=== PATIENT | female | born 2000 | race Caucasian/White ===

== ENCOUNTER 2020-02-11 22:15 | Day surgery (SDC) | payer OTHER ==
[2020-02-11 22:43] VITALS: BP 129/82; TEMP 98.7; BMI 31.5
[2020-02-11] MEDS ORDERED: hydrALAZINE 20 MG/ML VIAL SLOW IVP PRN (23:02)
--- NOTE | 2020-02-18 20:43 | SS ---
DATE OF ADMISSION: 02/11/2020 DATE OF DISCHARGE: 02/11/2020 REGULAR PHYSICIAN: Ana Cristina Matamoros MD EVALUATING PHYSICIAN: Nayan Macdonald MD CHIEF COMPLAINT: Contractions at home. HISTORY OF PRESENT ILLNESS: Ms. Dumont is a 19-year-old white G1, P0, with an estimated date of confinement of 02/17/2020, who presents complaining of uterine contractions at home approximately every 6 to 10 minutes. She denies associated ruptured membranes or vaginal bleeding. Her care has been with Dr. Matamoros and has been without reported complications. PAST MEDICAL HISTORY: None. PAST SURGICAL HISTORY: [place] teeth extraction. CURRENT MEDICATIONS: 1. vitamins. 2. Macrobid. ALLERGIES: NO KNOWN ALLERGIES. SOCIAL HISTORY: She denies tobacco, alcohol, or drug use. FAMILY HISTORY: Unremarkable. REVIEW OF SYSTEMS: She denies nausea, vomiting, fever, chills, ruptured membranes, vaginal bleeding, or decreased movement. PHYSICAL EXAMINATION: VITAL SIGNS: In triage, her vital signs are stable, and she is afebrile. GENERAL: She is pleasant and in no acute distress. ABDOMEN: Soft, nontender, and gravid. PELVIC: Examination by a labor nurse shows the cervix to be 1 cm dilated and 80% effaced with the vertex presenting. DIAGNOSTIC DATA: heart rate tracing is stable with spontaneous accelerations. No decelerations are seen. Irregular uterine contractions are noted. ASSESSMENT: 1. A 39-1/7-week intrauterine . 2. Latent phase labor, no evidence of active labor at this time. PLAN: The patient will be dismissed to home with labor precautions. She understood these precautions and has a followup appointment with [facility] on . Job ID: [id number] [facility]
== END 2020-02-11 23:15 | disposition home or self-care (01) ==
LOC: L&D/OP 22:15
PROVIDERS: ATTEND Student in an Organized Health Care Education/Training Program
DX: O47.9 False labor, unspecified (principal); O99.891 Other specified diseases and conditions complicating pregnancy; N89.8 Other specified noninflammatory disorders of vagina; Z3A.00 Weeks of gestation of pregnancy not specified
CPT/HCPCS: 99282

== ENCOUNTER 2020-02-12 01:16 | Inpatient (IN) | payer OTHER ==
[2020-02-12 02:01] VITALS: BMI 31.5
[2020-02-12 02:10] LABS: Amnisure Internal Control QC ACCEPTABLE (ACCEPTABLE); Amnisure Test RUPTURE DETECTED (No Rupture)
[2020-02-12] MEDS ORDERED: Lidocaine 1% (PF) 30 ML VIAL SC PRN (02:24)
[2020-02-12] MEDS ORDERED: Ondansetron PF 4 MG/2 ML Vial IVP PRN ×2 (02:24→22:52)
[2020-02-12] MEDS ORDERED: NS / Oxytocin 40 units/1000ml 1,000 ML IV PRN (02:24)
[2020-02-12] MEDS ORDERED: Ibuprofen 800 MG TAB PO PRN (02:24)
[2020-02-12] MEDS ORDERED: Butorphanol Tartrate 1 MG/ML VIAL SLOW IVP PRN (02:24)
[2020-02-12] MEDS ORDERED: Promethazine HCl 25 MG/ML VIAL IM PRN (02:24)
[2020-02-12] MEDS ORDERED: hydrALAZINE 20 MG/ML VIAL SLOW IVP PRN ×2 (02:24→22:52)
[2020-02-12] MEDS ORDERED: HYDROcodone/Acetaminophen 5/325 mg Tablet PO PRN ×4 (02:24→22:52)
[2020-02-12] MEDS ORDERED: Penicillin G Potassium 5 MILL.UNITS in Sodium Chloride 0.9% 100 ML IVPB SCH (02:30)
[2020-02-12] MEDS ORDERED: NS w/ Oxytocin 10 units 500 ML IV SCH (02:30)
[2020-02-12] MEDS ORDERED: Lactated Ringer's 1,000 ML IV SCH (02:30)
--- NOTE | 2020-02-12 02:49 | PDOC.LDHP ---
Labor and Delivery H&P Chief complaint: loss of fluid HPI: 19 yo WF presernts c/o SROM at 0030. Was here earlier for labor check and sent home. Current gestational age (weeks): 39 Due date: 02/17/20 Dating criteria: last menstrual period Grav: 1 Para: 0 OB History Details: PNC with Dr. Matamoros Current complications: none Abnormal US findings: No Past Medical History: none Current medications: pre-bryan vitamins, other (Macrobid) Previous surgical history: other ([place] teeth) Allergies/Adverse Reactions: Allergies Allergy/AdvReac Type Severity Reaction Status Date / Time No Known Allergies Allergy Verified 02/12/20 01:58 Social history: none - Physical Exam Vital signs reviewed and normal: yes General: resting Heart: RRR Lungs: CTAB Abdomen: gravid Extremeties: trace edema FHT: category 1 [place] contractions every: q 5-7 mins - Vaginal Exam cm dilated: 1 Effacement: 75% Station: -1 - OB Labs GBS: positive - Assessment L&D Assessment: term rupture in membranes - Plan Plan: admit to L&D, labor augmentation if indicated, GBS antibiotic prophylaxis, informed consent obtained, anesthesia consult for pain management, other (Dr. Matamoros notified by Labor staff of admit)
[2020-02-12] MEDS: Lactated Ringer's 1,000 ML IV SCH ×2 (02:55→22:51)
[2020-02-12 02:59] LABS: Hemoglobin 12.2 g/dL (12.0-16.0); Mean Corpuscular HGB CONC 36.7 g/dL (32.0-36.0); Mean Corpuscular Hemoglobin 30.9 pg (25.0-35.0); Mean Corpuscular Volume 84.2 fL (78.0-98.0); Mean Platelet Volume 10.4 fL (7.4-10.4); Platelet Count 112 thou/uL (130-400); RBC Distribution Width 12.8 % (11.5-14.5); Red Blood Cell (RBC) Count 3.95 mill/uL (4.00-5.20); White Blood Cell (WBC) Count 10.9 thou/uL (4.8-10.8)
[2020-02-12 03:36] LABS: HBSAg Index 0.21 S/CO (0-0.99); Hep B Surf Ag Non-Reactive S/CO (NonReactive)
[2020-02-12 04:52] LABS: Syphilis Antibody Nonreactive (Nonreactive); Syphilis Antibody Index 0.03 S/CO (<1.00 Non-Reactive)
[2020-02-12] MEDS: Penicillin G 2.5 MILL.units 2.5 MILL.UNITS in Premix Bag 1 BAG IVPB SCH ×5 (07:02→22:52)
--- NOTE | 2020-02-12 09:48 | PDOC.LDPN ---
Labor & Delivery Progress Note - Subjective Subjective: painful contractions - Objective Vital signs reviewed and normal: yes General: NAD Uterine fundus: non tender Dilation: 3 Effacement: 90% Station: -1 FHT: category 1 Plan: continue plan of care (, if no significant SVE change by noon will start pitocin)
[2020-02-12 11:10] LABS: SARS-CoV-2 MS2 Positive; SARS-CoV-2 N Gene Negative; SARS-CoV-2 S Gene Negative; SARS-CoV-2 by NAA Not Detected (NotDetected); SARS-CoV-2 orf1ab Negative
--- NOTE | 2020-02-12 22:01 | PDOC.OPDEL ---
OB Operative/Delivery Note Delivery Dr/Surgeon: [place] Assist: n/a Pre-Delivery Diagnosis: ruptured membrane Procedure/Post Delivery Dx: spontaneous vaginal delivery Weeks gestation: 39 Anesthesia: none - Findings A Sex: male - 1 min: 8 - 5 min: 9 - Additional Findings/Plan Placenta delivered: spontaneous Repaired Obstetrical Laceration: none Estimated blood loss: 100cc Compilations/Other Findings: Delivered OP presentation Post delivery plan: routine recovery
[2020-02-12] MEDS ORDERED: Bisacodyl 10 MG SUPP PR PRN (22:52)
[2020-02-12] MEDS ORDERED: Preparation H Ointment 28 GM TUBE PR PRN (22:52)
[2020-02-12] MEDS ORDERED: Benzocaine-Menthol 82.5 ML CAN TOP PRN (22:52)
[2020-02-12] MEDS ORDERED: Lanolin Ointment 7 GM TUBE TOP PRN (22:52)
[2020-02-12] MEDS ORDERED: Milk Of Magnesia 30 ML UDCUP PO PRN (22:52)
[2020-02-12] MEDS ORDERED: NS / Oxytocin 40 units/1000ml 1,000 ML IV SCH (22:52)
[2020-02-12] MEDS ORDERED: diphenhydrAMINE 25 MG CAP PO PRN (22:52)
[2020-02-13] MEDS: Ibuprofen 800 MG TAB PO SCH ×3 (05:32→22:01)
[2020-02-13] MEDS: Prenatal Vitamin 1 TAB PO SCH (08:22)
[2020-02-13] MEDS: Docusate Calcium (SURFAK) 240 MG CAP PO SCH ×2 (08:22→22:01)
[2020-02-13] MEDS: Ferrous Sulfate 325 MG TAB PO SCH ×2 (08:25→16:27)
[2020-02-13] MEDS ORDERED: Adacel (T-DAP) 0.5 ML SYRINGE IM ONE (09:00)
--- NOTE | 2020-02-13 14:37 | PDOC.PP ---
Post Progress Note Post Day #: 1 PO intake tolerated: yes Flatus: yes Ambulation: yes Vital Signs (12 hours) Temp Pulse Resp BP Pulse Ox 02/13/20 11:41 98.3 F 84 20 116/56 L 02/13/20 08:15 98.6 F 89 20 101/57 L 97 02/13/20 05:30 98.2 F 79 14 109/59 L Weight Weight 178 lb - Physical Examination General: NAD Respiratory: non-labored breathing Abdominal: no distention, appropriately TTP Neurological: no gross focal deficits Psychiatric: normal affect Result Diagrams: 02/12/20 02:41 Additional Labs: Post Labs Hep Bs Antigen Non-Reactive S/CO (NonReactive) 02/12/20 02:41 Blood Type O POSITIVE 02/12/20 02:41 - Assessment/Plan PPD1 s/p TSVD VSSAF Pain controlled, lochia < menses Rh pos RImm Cont PP care, home tomorrow
[2020-02-14 08:16] VITALS: BP 106/59; TEMP 98.6
[2020-02-14] MEDS: Ibuprofen 800 MG TAB PO SCH (10:48)
[2020-02-14] MEDS: Prenatal Vitamin 1 TAB PO SCH (10:48)
[2020-02-14] MEDS: Ferrous Sulfate 325 MG TAB PO SCH (10:49)
[2020-02-14] MEDS: Docusate Calcium (SURFAK) 240 MG CAP PO SCH (10:49)
--- NOTE | 2020-02-14 11:34 | PDOC.PP ---
Post Progress Note Post Day #: 2 PO intake tolerated: yes Flatus: yes Ambulation: yes Vital Signs (12 hours) Temp Pulse Resp BP Pulse Ox 02/14/20 08:15 98.6 F 75 20 106/59 L 99 Weight Weight 178 lb - Physical Examination General: NAD Respiratory: non-labored breathing Abdominal: no distention, appropriately TTP Fundus firm & at: umb-2 Neurological: no gross focal deficits Psychiatric: normal affect Result Diagrams: 02/12/20 02:41 Additional Labs: Post Labs Hep Bs Antigen Non-Reactive S/CO (NonReactive) 02/12/20 02:41 Blood Type O POSITIVE 02/12/20 02:41 - Assessment/Plan PPD2 s/p TSVD VSSAF Doing well no issues s/p LC Rh pos RImm DC home FU 6w
== END 2020-02-14 13:10 | disposition home or self-care (01) | DRG 807 ==
LOC: L&D/OP 01:16 → L&D 02:24 → 3SW 23:41
PROVIDERS: ADMIT Student in an Organized Health Care Education/Training Program; ATTEND Student in an Organized Health Care Education/Training Program
PROC: 10E0XZZ Delivery of Products of Conception, External Approach (ICD-10-PCS; principal; 2020-02-12)
DX: O99.824 Streptococcus B carrier state complicating childbirth (principal); Z37.0 Single live birth; Z3A.39 39 weeks gestation of pregnancy; Z20.828 Contact with and (suspected) exposure to other viral communicable diseases
CPT/HCPCS: 36415; 84112; 85027; 86780; 86850; 86900; 86901; 87340; 87635; 99282; J2540; J2590; J3490; U0003